=== PATIENT | male | born 1985 | race Hispanic/Latino ===

== ENCOUNTER 2021-04-29 15:06 | Emergency (ER) | payer SELFPAY ==
[~2021-04-29] VITALS: Ht 175.3 cm; Wt 85.0 kg
[~2021-04-29 15:06] MED LIST: BENADRYL DF25 MG IM; BENADRYL25 MG PO; DEPO-MEDROL80 MG/ML IM; HYDROCO/APAP1 TA9 PO; MOTRIN400 MG PO; NO; SOLU-MEDROL125 MG IM; [UNRECOGNIZED DRUG - OTHER]
[2021-04-29 17:32] VITALS: BP 146/71
== END 2021-04-29 17:32 | disposition home or self-care (01) | DRG 866 ==
LOC: ED 15:06
DX: B34.9 Viral infection, unspecified (principal); Z20.822 Contact with and (suspected) exposure to COVID-19

== ENCOUNTER 2024-10-01 10:29 | Emergency (ER) | payer OTHER ==
[~2024-10-01] VITALS: Ht 175.3 cm; Wt 96.0 kg
[2024-10-01 11:21] VITALS: BP 126/89
[2024-10-01] MEDS ORDERED: MOTRIN800 MG PO (11:34)
== END 2024-10-01 12:03 | disposition home or self-care (01) | DRG 605 ==
LOC: ED 10:29
DX: S80.02XA Contusion of left knee, initial encounter (principal); M25.462 Effusion, left knee; W19.XXXA Unspecified fall, initial encounter; Y92.89 Other specified places as the place of occurrence of the external cause; Y99.0 Civilian activity done for income or pay